=== PATIENT | male | born 1985 | race Hispanic/Latino ===

== ENCOUNTER 2016-05-11 08:21 | Emergency (ER) | payer OTHER ==
[2016-05-11 08:35] VITALS: RESP 20; TEMP 98.7; O2SAT 98
[2016-05-11] MEDS ORDERED: Lidocaine/Epi 1% 1:100000 20 ML IJ ONE (09:35)
[2016-05-11] MEDS ORDERED: Tmp-Smz 800 mg-160 mg DS Tab PO STA (09:36)
[2016-05-11] MEDS ORDERED: Oxycodone/Acetaminophen 5/325 mg Tab PO STA (09:36)
[2016-05-11] MEDS ORDERED: Lidocaine 1% Inj (20ml) ONE (09:43)
--- NOTE | 2016-05-11 09:51 | ED PDOC ---
Arrival/HPI - General Chief Complaint: Abnormal Skin Integrity Time Seen by Provider: 05/11/16 09:22 Historian: Patient - History of Present Illness Narrative History of Present Illness (Text): 05/11/16 09:48 30yo male present with painful Pilonidal cyst x 2days. States cyst started a month ago. He was seen by a colorectal surgeon who I &D the cyst. States one of the cyst improved and the other one reappeared again. He states that he have an appointment with the Surgeon to schedule surgery removal of the cyst. States he was applying warm compress to the Cyst. denies fever, chills, any other complaint. Past Medical History - Provider Review Nursing Documentation Reviewed: Yes - Infectious Disease Hx of Infectious Diseases: None - Psychiatric Hx Substance Use: No - Anesthesia Hx Anesthesia: No Family/Social History - Physician Review Nursing Documentation Reviewed: Yes Family/Social History: Unknown Family HX Smoking Status: Current Some Days Smoker Hx Alcohol Use: Yes Frequency of alcohol use: Socially Hx Substance Use: No Allergies/Home Meds Allergies/Adverse Reactions: Allergies No Known Allergies Allergy (Verified 05/11/16 08:34) Review of Systems - Physician Review All systems were reviewed & negative as marked: Yes - Review of Systems Constitutional: Normal Eyes: Normal ENT: Normal Respiratory: Normal Cardiovascular: Normal Gastrointestinal: Normal Genitourinary Male: Normal Musculoskeletal: Normal Skin: Abscess (Pilonidal abscess) Neurological: Normal Endocrine: Normal Hemo/Lymphatic: Normal Psychiatric: Normal Physical Exam Vital Signs Reviewed: Yes Vital Signs Temp Pulse Resp BP Pulse Ox 05/11/16 08:31 98.7 F 98 H 20 146/101 H 98 Temperature: Afebrile Blood Pressure: Normal Pulse: Regular Respiratory Rate: Normal Appearance: Positive for: Well-Appearing, Non-Toxic, Comfortable Pain Distress: None Mental Status: Positive for: Alert and Oriented X 3 - Systems Exam Head: Present: Atraumatic, Normocephalic Pupils: Present: PERRL Extroacular Muscles: Present: EOMI Conjunctiva: Present: Normal Mouth: Present: Moist Mucous Membranes Neck: Present: Normal Range of Motion Respiratory/Chest: Present: Clear to Auscultation, Good Air Exchange. No: Respiratory Distress, Accessory Muscle Use Cardiovascular: Present: Regular Rate and Rhythm, Normal S1, S2. No: Murmurs Abdomen: Present: Normal Bowel Sounds. No: Tenderness, Distention, Peritoneal Signs Back: Present: Normal Inspection Upper Extremity: Present: Normal Inspection. No: Cyanosis, Edema Lower Extremity: Present: Normal Inspection. No: Edema Neurological: Present: GCS=15, CN II-XII Intact, Speech Normal Skin: Present: Warm, Dry, Normal Color, Abscess (Tender indurated pilonidal cyst noted). No: Rashes Psychiatric: Present: Alert, Oriented x 3, Normal Insight, Normal Concentration Medical Decision Making ED Course and Treatment: 05/11/16 10:26 I &D done in ED. Pus and blood expressed. Some area of induration still in place. Packing placed. Pt advised TRT ED in 2days for packing removal. Placed on abx. - Medication Orders Current Medication Orders: Discontinued Medications Lidocaine HCl (Lidocaine 1% (20ml)) Confirm Administered Dose 20 ml .ROUTE .STK- MED ONE Stop: 05/11/16 09:44 Lidocaine/Epinephrine (Lidocaine/Epi 1% 1:448101 20 Ml) 5 ml IJ ONCE ONE Stop: 05/11/16 09:36 Oxycodone/Acetaminophen (Percocet 5/325 Mg Tab) 1 tab PO STAT STA Stop: 05/11/16 09:37 Last Admin: 05/11/16 09:49 Dose: 1 TAB Trimethoprim/Sulfamethoxazole (Bactrim Ds Tab) 1 tab PO STAT STA PRN Reason: Protocol Stop: 05/11/16 09:37 Last Admin: 05/11/16 09:49 Dose: 1 TAB Disposition/Present on Arrival - Present on Arrival Any Indicators Present on Arrival: No History of DVT/PE: No History of Uncontrolled Diabetes: No Urinary Catheter: No History of Decub. Ulcer: No History Surgical Site Infection Following: None - Disposition Have Diagnosis and Disposition been Completed?: Yes Diagnosis: Pilonidal cyst with abscess Disposition: HOME/ ROUTINE Disposition Time: 10:25 Patient Plan: Discharge Patient Problems: Current Active Problems Problem Status Diagnosed Pilonidal cyst with abscess Acute Condition: STABLE Discharge Instructions (ExitCare): Abscess (ED) Additional Instructions: Take medication as directed Apply warm compress to area multiple times Follow up with your Surgeon Return to ED for any new or worsening symptoms Prescriptions: Sulfamethoxazole/Trimethoprim [Bactrim DS 800 mg-160 mg] 1 tab PO BID #20 tab Clindamycin [Cleocin] 300 mg PO TID #30 cap traMADol [Ultram] 50 mg PO TID #8 tab Referrals: [facility] at [facility] [place] [Outside] - Follow up with primary - Incision & Drainage Of Abscess Anesthesia: With Epi (10ml) Prep Used: Betadine Procedure: Incised W/Scalpel Blade#: (11), Drained Pus, Irrigated Cavity W/ Saline, Probed To Break Up Loculations, Packed W/Gauze
[2016-05-11 10:47] VITALS: BP 148/98; PULSE 88
== END 2016-05-11 10:48 | disposition home or self-care (01) ==
LOC: ED 08:21
DX: L05.01 Pilonidal cyst with abscess (principal)